=== PATIENT | male | born 1970 | race Two or more races ===

== ENCOUNTER 2016-06-14 14:45 | Emergency (ER) | payer MEDICAID ==
[~2016-06-14] VITALS: Ht 177.8 cm; Wt 84.8 kg
[2016-06-14 16:16] VITALS: BP 142/79
== END 2016-06-14 18:14 | disposition home or self-care (01) ==
LOC: ER 14:49
DX: H00.11 Chalazion right upper eyelid (principal); I10 Essential (primary) hypertension
CPT/HCPCS: 99283; A4606; Z7610

== ENCOUNTER 2018-12-03 03:11 | Emergency (ER) | payer MEDICAID ==
[~2018-12-03] VITALS: Ht 177.8 cm; Wt 89.4 kg
[2018-12-03 03:23] VITALS: BP 130/75
--- NOTE | 2018-12-03 03:30 | NUR ---
BIBS FOR C/O COUGH AND GEN BODY PAIN X 5 DAYS. CURRENTLY AFEBRILE. VSS. WILL CONT TO MONITOR ,
[2018-12-03] MEDS ORDERED: IBUPROFEN 600 MG TABLET PO ONE ×2 (03:35→04:00)
[2018-12-03] MEDS ORDERED: ACETAMINOPHEN ES 500 MG TABLET ONE (03:35)
--- NOTE | 2018-12-03 03:59 | NUR ---
Patient discharged to home in stable condition. Written and verbal after care instructions given. Patient verbalizes understanding of instruction.
[2018-12-03] MEDS ORDERED: ACETAMINOPHEN ES 500 MG TABLET PO ONE (04:00)
== END 2018-12-03 04:00 | disposition home or self-care (01) ==
LOC: ER 03:17
DX: R51 Headache (principal); I10 Essential (primary) hypertension; Z41.1 Encounter for cosmetic surgery

== ENCOUNTER 2019-03-09 03:05 | Emergency (ER) | payer SELFPAY ==
[~2019-03-09] VITALS: Ht 185.4 cm; Wt 89.8 kg
--- NOTE | 2019-03-09 03:15 | NUR ---
PT BIBSELF C/O R SIDE FACE PAIN, FEVER X 10 DAYS. PT STATES HAVING DENTAL PROCEDURE, AND ON ANTIBIOTIC. PT AXO4. RESPIRATIONS EVEN AND UNLABORED. PT PUT ON THE PASTRY SOUS CHEF AND PULSE OX. PENDING EVAL FROM ER .
--- NOTE | 2019-03-09 04:05 | NUR ---
20G RAC IV STARED, BLOOD DRAWN AND SENT TO LAB.
[2019-03-09 04:11] LABS: HEMATOCRIT 40 % (39-51); HEMOGLOBIN 13.6 g/dL (13.5-17.5); LYMPHOCYTES # (AUTO) 1.4 /CMM (0.8-4.8); LYMPHOCYTES % (AUTO) 28.1 % (20.0-44.0); MEAN CORPUSCULAR HGB CONC 34 g/dl (31.0-36.0); MEAN CORPUSCULAR VOLUME 95 fL (80-96); MONOCYTES # (AUTO) 0.4 /CMM (0.1-1.30); MONOCYTES % (AUTO) 8.1 % (2.0-12.0); NEUTROPHILS # (AUTO) 2.9 /CMM (1.8-8.9); NEUTROPHILS % (AUTO) 59.8 % (43.0-81.0); PLATELET COUNT (AUTO) 237 /CMM (150-450); RED BLOOD CELL COUNT(AUTO) 4.22 MIL/uL (4.5-6.0); WHITE BLOOD COUNT (AUTO) 4.8 K/uL (4.3-11.0)
[2019-03-09 04:20] LABS: CALCIUM, SERUM 8.3 mg/dL (8.5-10.1); CREATININE 1.2 mg/dL (0.6-1.3); POTASSIUM 3.9 mmol/L (3.5-5.1)
--- NOTE | 2019-03-09 04:40 | NUR ---
PT TAKEN TO CT VIA [facility].
--- NOTE | 2019-03-09 04:56 | NUR ---
PT RETURNED FROM CT VIA [facility].
[2019-03-09] MEDS ORDERED: CLINDAMYCIN HCL 150 MG CAPSULE PO ONE ×2 (06:00)
--- NOTE | 2019-03-09 06:09 | NUR ---
Patient discharged to home in stable condition. Written and verbal after care instructions given. Patient verbalizes understanding of instruction. IV removed. Catheter intact and site benign. Pressure and 4x4 applied to site. No bleeding noted.
[2019-03-09 06:10] VITALS: BP 133/84
== END 2019-03-09 06:11 | disposition home or self-care (01) ==
LOC: ER 03:10
DX: M54.2 Cervicalgia (principal); I10 Essential (primary) hypertension
CPT/HCPCS: 36415; 70491-TC; 80048-TC; 85025-TC

== ENCOUNTER 2019-03-11 00:08 | Emergency (ER) | payer MEDICAID ==
[~2019-03-11] VITALS: Ht 185.4 cm; Wt 89.8 kg
[2019-03-11 00:19] VITALS: BP 146/86
--- NOTE | 2019-03-11 00:39 | NUR ---
TECH AT BEDSIDE FOR EKG
[2019-03-11 01:02] LABS: EOSINOPHILS % (AUTO) 2.8 % (0.0-6.0); HEMATOCRIT 38 % (39-51); HEMOGLOBIN 13.1 g/dL (13.5-17.5); LYMPHOCYTES # (AUTO) 1.2 /CMM (0.8-4.8); LYMPHOCYTES % (AUTO) 27.6 % (20.0-44.0); MEAN CORPUSCULAR HGB CONC 35 g/dl (31.0-36.0); MEAN CORPUSCULAR VOLUME 94 fL (80-96); MONOCYTES # (AUTO) 0.4 /CMM (0.1-1.30); MONOCYTES % (AUTO) 8.4 % (2.0-12.0); NEUTROPHILS # (AUTO) 2.5 /CMM (1.8-8.9); NEUTROPHILS % (AUTO) 60.2 % (43.0-81.0); PLATELET COUNT (AUTO) 214 /CMM (150-450); RED BLOOD CELL COUNT(AUTO) 4.03 MIL/uL (4.5-6.0); WHITE BLOOD COUNT (AUTO) 4.2 K/uL (4.3-11.0)
--- NOTE | 2019-03-11 01:05 | NUR ---
RADIOLOGY AT BEDSIDE FOR XRAY
[2019-03-11 01:17] LABS: CALCIUM, SERUM 7.9 mg/dL (8.5-10.1); CARBON DIOXIDE 28 mmol/L (21-32); CHLORIDE 107 mmol/L (98-107); CREATININE 1.1 mg/dL (0.6-1.3); GLUCOSE 103 mg/dL (74-106); POTASSIUM 3.6 mmol/L (3.5-5.1); SODIUM SERUM 141 mmol/L (136-145); UREA NITROGEN, BLOOD 16 mg/dL (7-18)
[2019-03-11 01:22] LABS: B-TYPE NATRIURETIC PEPTIDE 65 PG/ML (0-125)
--- NOTE | 2019-03-11 02:11 | NUR ---
IV removed. Catheter intact and site benign. Pressure and 4x4 applied to site. No bleeding noted.Patient discharged to home in stable condition. Written and verbal after care instructions given. Patient verbalizes understanding of instruction. PT AMBULATORY WITH STEADY GAIT.
== END 2019-03-11 02:18 | disposition home or self-care (01) ==
LOC: ER 00:13
DX: R07.89 Other chest pain (principal); I10 Essential (primary) hypertension
CPT/HCPCS: 36415; 71045-TC; 80048-TC; 83880; 84484-TC; 85025-TC

== ENCOUNTER 2019-10-28 00:25 | Emergency (ER) | payer SELFPAY ==
[~2019-10-28] VITALS: Ht 182.9 cm; Wt 85.7 kg
--- NOTE | 2019-10-28 00:29 | NUR ---
BIBS FOR C/O FEVER X 6 DAYS. + DYSURIA AND FOUL SMELL OF THE URINE REC'D MOTRIN 800MG AT 2100, pt to bed 7, [id number], -sob, vss, pending er provider [email or web address]
--- NOTE | 2019-10-28 00:43 | NUR ---
URINE COLLECTED AND SENT TO THE LAB.
[2019-10-28 00:59] LABS: APPEARANCE,URINE Cloudy (CLEAR); BILIRUBIN,URINE SMALL (NEGATIVE); BLOOD, URINE Small Ery/uL (NEGATIVE); COLOR,URINE Dark (YELLOW); KETONES,URINE Trace (NEGATIVE); LEUKOCYTE ESTERASE ,URINE Large (NEGATIVE); NITRITE, URINE Positive (NEGATIVE); PH,URINE 6.5 (5.0-8.0); PROTEIN,URINE >=300 mg/dl (NEGATIVE); UGLUCOSE 100 MG/DL mg/dL (NEGATIVE)
[2019-10-28 01:00] LABS: BASOPHILS % (AUTO) 0.1 % (0.0-2.0); HEMATOCRIT 39 % (39-51); HEMOGLOBIN 13.5 g/dL (13.5-17.5); LYMPHOCYTES # (AUTO) 0.4 /CMM (0.8-4.8); MEAN CORPUSCULAR HGB CONC 34 g/dl (31.0-36.0); MEAN CORPUSCULAR VOLUME 91 fL (80-96); MONOCYTES # (AUTO) 0.5 /CMM (0.1-1.30); NEUTROPHILS # (AUTO) 5.3 /CMM (1.8-8.9); NEUTROPHILS % (AUTO) 84.9 % (43.0-81.0); PLATELET COUNT (AUTO) 194 /CMM (150-450); RED BLOOD CELL COUNT(AUTO) 4.33 MIL/uL (4.5-6.0); WHITE BLOOD COUNT (AUTO) 6.2 K/uL (4.3-11.0)
[2019-10-28] MEDS ORDERED: IV NS 0.9% 1,000 ML BAG IV ONE (01:00)
[2019-10-28 01:10] LABS: CALCIUM, SERUM 8.2 mg/dL (8.5-10.1); CREATININE 1.3 mg/dL (0.6-1.3); POTASSIUM 3.5 mmol/L (3.5-5.1)
[2019-10-28 01:17] LABS: BACTERIA,URINE Few /HPF (None Seen); SQUAMOUS EPITHELIAL CELL,UR Rare /HPF (None Seen); WBC,URINE TOO NUMEROUS TO COUN /HPF (0-3)
[2019-10-28 01:30] VITALS: BP 110/75
== END 2019-10-28 01:30 | disposition home or self-care (01) ==
LOC: ER 00:26 → EDBD 00:26 → ER 01:30
DX: N39.0 Urinary tract infection, site not specified (principal)
CPT/HCPCS: 36415; 80048; 81001; 85025; 87077; 87086; 87186 ×2; 99283; J7030; 81000-TC

== ENCOUNTER 2020-02-25 17:21 | Emergency (ER) | payer SELFPAY ==
[~2020-02-25] VITALS: Ht 182.9 cm; Wt 91.2 kg
[2020-02-25] MEDS ORDERED: TDAP [DIPH/PERTUSSIS/TET] 0.5 ML VIAL IM ONE ×2 (17:54→18:00)
--- NOTE | 2020-02-25 17:57 | NUR ---
ACCESSIBILITY LIFT TECHNICIAN AT BEDSIDE TO CLEAN L THUMB LACERATION
[2020-02-25] MEDS ORDERED: LIDOCAINE HCL/PF 2 % 5ML SDV 5 ML VIAL ONE (18:02)
--- NOTE | 2020-02-25 18:04 | NUR ---
EVANGELINA FOOTE AT BEDSIDE FOR SUTURING
--- NOTE | 2020-02-25 18:28 | NUR ---
it service technician at bedside for wound dressing
[2020-02-25 18:45] VITALS: BP 132/78
--- NOTE | 2020-02-25 18:45 | NUR ---
Patient discharged to home in stable condition. Written and verbal after care instructions given. Patient verbalizes understanding of instruction.
== END 2020-02-25 18:46 | disposition home or self-care (01) ==
LOC: ER 17:21
DX: S61.012A Laceration without foreign body of left thumb without damage to nail, initial encounter (principal); W26.0XXA Contact with knife, initial encounter; Y93.89 Activity, other specified; Y92.89 Other specified places as the place of occurrence of the external cause; Y99.8 Other external cause status
CPT/HCPCS: 12001; 90471; 90715; 99283; A6403; J3490

== ENCOUNTER 2021-11-16 21:58 | Emergency (ER) | payer SELFPAY ==
[~2021-11-16] VITALS: Ht 177.8 cm; Wt 90.7 kg
[2021-11-16 23:00] VITALS: BP 140/53
--- NOTE | 2021-11-17 00:24 | NUR ---
Patient discharged to home in stable condition. Written and verbal after care instructions given. Patient verbalizes understanding of instruction.
== END 2021-11-17 00:25 | disposition home or self-care (01) ==
LOC: ER 22:12
DX: U07.1 COVID-19 (principal); I10 Essential (primary) hypertension; Z60.2 Problems related to living alone
CPT/HCPCS: 71045-TC